=== PATIENT | female | born 1965 | race Two or more races ===

== ENCOUNTER 2021-03-29 10:33 | Emergency (ER) | payer MEDICAID ==
[~2021-03-29] VITALS: Ht 167.6 cm; Wt 59.0 kg
[2021-03-29 11:33] VITALS: BP 150/78
[2021-03-29] MEDS ORDERED: HYDROcodone-ACET 10/325MG TAB PO ONE (12:00)
== END 2021-03-29 14:11 | disposition home or self-care (01) ==
LOC: ER 10:33
DX: S82.831A Other fracture of upper and lower end of right fibula, initial encounter for closed fracture (principal); M06.831 Other specified rheumatoid arthritis, right wrist; F17.210 Nicotine dependence, cigarettes, uncomplicated; Z98.890 Other specified postprocedural states; W01.0XXA Fall on same level from slipping, tripping and stumbling without subsequent striking against object, initial encounter; Y93.89 Activity, other specified; Y92.89 Other specified places as the place of occurrence of the external cause; Y99.8 Other external cause status
CPT/HCPCS: 29515; 73110; 73600